=== PATIENT | male | born 1970 | race African-American/Black ===

== ENCOUNTER 2018-05-12 14:42 | Emergency (ER) | payer BC, OTHER ==
[2018-05-12 14:48] VITALS: BP 140/82
[2018-05-12] MEDS ORDERED: IBUPROFEN 800 MG TABLET PO ONE (15:16)
[2018-05-12] MEDS ORDERED: DIPHENHYDRAMINE HCL 50 MG CAPSULE PO ONE (15:16)
[2018-05-12] MEDS ORDERED: PROCHLORPERAZINE MALEATE 10 MG TABLET PO ONE (15:16)
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
== END 2018-05-12 15:30 | disposition home or self-care (01) ==
LOC: ER 14:42
DX: G44.209 Tension-type headache, unspecified, not intractable (principal); M54.9 Dorsalgia, unspecified
CPT/HCPCS: 99283; S0183